=== PATIENT | female | born 1995 | race Hispanic/Latino ===

== ENCOUNTER 2017-05-10 02:35 | Emergency (ER) | payer OTHER, SELFPAY ==
[2017-05-10] MEDS ORDERED: KETOROLAC TROMETHAMINE 30MG/ML ONE (03:43)
[2017-05-10] MEDS ORDERED: PROMETHAZINE HCL 25 MG/ML 1ML AMPULE IM ONE (03:57)
[2017-05-10] MEDS ORDERED: SODIUM CHLORIDE 0.9% 1000ML 1,000 ML IV ONE (04:55)
== END 2017-05-10 04:57 | disposition home or self-care (01) ==
LOC: EDH 02:35
DX: G43.009 Migraine without aura, not intractable, without status migrainosus (principal); R10.13 Epigastric pain; R11.0 Nausea
CPT/HCPCS: 81025; 96361; 96372; 96374; 99285; J1885; J2550; J7030